=== PATIENT | male | born 1935 | race Caucasian/White ===

== ENCOUNTER → 2017-03-30 | Outpatient (CLI) | payer OTHER ==
[~2017-03-30] MED LIST: ACET1TAB84 PO; ALL300 PO; AMIO200T4 PO; ASCA500 PO; ASPI81TA28 PO; CARV6.252 PO; CMD4 PO; FRRS300 PO; FRS/40 PO; LEVO50TA6 PO; LISI-729 PO; LISI-787 PO; METO25TA56 PO; MULT-506 PO; OXYC-57 PO; PRAV20TA PO
--- NOTE | 2017-03-30 15:49 | DIAGNOSTIC IMAGING REPORT ---
SI JOINTS 3 OR MORE VIEWS HISTORY: 81 years-old Male SACROILIITIS, LUMBAGO, GAIT ABNORMALITY chronic low back pain COMPARISON: Leg length study of same day, bone scan 11/02/2007 TECHNIQUE: 3 views of the sacroiliac joints FINDINGS: Moderate to severe intervertebral disc space narrowing and facet arthropathy of the lower lumbar spine. Moderate degenerative changes involve the bilateral sacroiliac joints without erosive changes or ankylosis identified. No sacral insufficiency fracture identified. Bones are osteopenic. IMPRESSION: 1. No acute fracture or dislocation. 2. Moderate degenerative changes of the bilateral sacroiliac joints without erosive changes or ankylosis identified. 3. Moderate disc space narrowing and facet arthropathy of the imaged lower lumbar spine. The above report was generated using voice recognition software. It may contain grammatical, syntax or spelling errors. Electronically signed by: Bradley Langston M.D. 03/30/2017 3:48 PM Dictated Date/Time: 03/30/2017 3:46 PM
--- NOTE | 2017-03-30 16:08 | DIAGNOSTIC IMAGING REPORT ---
LEG LENGTH STUDY CLINICAL HISTORY: Chronic low back pain. FINDINGS: 5 views of the lower extremities from a leg length study are presented. The skeletal structures are osteopenic. There is no radiographic evidence of fracture in the lower extremities or pelvis. Bilateral knee arthroplasties are in place. The right lower extremity measures 88.0 cm and the left lower extremity measures 88.6 cm in length as measured from the femoral head to the tibial plafonds. A benign-appearing sclerotic lesion in the left proximal tibia is typical appearance for an enchondroma. No pelvic tilt is identified. Mild arthritic change is seen in the knees. Advanced lumbosacral spondylosis is partially imaged. IMPRESSION: Leg length study findings as above. Electronically signed by: Jose Carlos Dupree M.D. 03/30/2017 4:07 PM Dictated Date/Time: 03/30/2017 4:05 PM
== END | disposition home or self-care (01) ==
LOC: C.RADBC 14:49
PROVIDERS: ATTEND Physician Assistant
DX: M46.1 Sacroiliitis, not elsewhere classified (principal); M54.5 Low back pain; R26.9 Unspecified abnormalities of gait and mobility; M53.3 Sacrococcygeal disorders, not elsewhere classified; M51.36 Other intervertebral disc degeneration, lumbar region